=== PATIENT | male | born 1980 | race Hispanic/Latino ===

== ENCOUNTER → 2021-05-30 10:55 | Outpatient (CLI) | payer SELFPAY ==
--- NOTE | ~2021-05-30 | US_ITS ---
EXAMINATION: US soft tissue groin RT DATE: 05/30/2021 11:15 INDICATION: Right lower quadrant abdominal pain. Right inguinal pain. TECHNIQUE: Multiple grayscale and Doppler ultrasound images of the region of concern at the right guzman in were obtained. COMPARISON: None FINDINGS: Right inguinal hernia which contains fat as well as some shadowing gas-filled bowel on the initial im ages. Per discussion with the track vehicle repairer this reduced spontaneously during the course of the examina tion and the patient was reportedly unable to sense this. The hernia contains only fat on the final i mages. The hernia orifice measures approximately 1.9 x 1.7 cm. IMPRESSION: 1. Right inguinal hernia partially containing both fat and some gas containing bowel the latter which reduce spontaneously during the course of the examination. Reviewed, dictated and finalized at location A. IMPRESSION: 1. Right inguinal hernia partially containing both fat and some gas containing bowel the latter which reduce spontaneously during the course of the examinatio abel
== END ==
PROVIDERS: PCP Registered Nurse; Visit Provider Registered Nurse
DX: R10.31 Right lower quadrant pain (principal); K40.90 Unilateral inguinal hernia, without obstruction or gangrene, not specified as recurrent
CPT/HCPCS: 76882